=== PATIENT | female | born 1990 | race African-American/Black ===

== ENCOUNTER 2022-06-30 00:01 | Inpatient (IN) ==
[2022-06-30] MEDS ORDERED: FAMOTIDINE 20 MG/2 ML VIAL IV PRN (00:12)
[2022-06-30] MEDS ORDERED: LACTATED RINGERS 500 ML IV PRN (00:12)
[2022-06-30] MEDS ORDERED: CARBOPROST TROMETHAMINE 250 MCG/ML AMP IM PRN (00:12)
[2022-06-30] MEDS ORDERED: ACETAMINOPHEN 500 MG TABLET PO PRN (00:12)
[2022-06-30] MEDS ORDERED: miSOPROStoL 200 MCG TABLET RECTAL PRN (00:12)
[2022-06-30] MEDS ORDERED: METHYLERGONOVINE 0.2 MG/1 ML AMP IM PRN (00:12)
[2022-06-30] MEDS ORDERED: BUTORPHANOL 2 MG/ML VIAL IV PRN (00:12)
[2022-06-30] MEDS ORDERED: BUTORPHANOL 1 MG/ML VIAL IV PRN (00:12)
[2022-06-30] MEDS ORDERED: OXYTOCIN/LR 20 UNIT/1,000 ML BAG IV ONE ×3 (00:12→22:32)
[2022-06-30] MEDS ORDERED: TRANEXAMIC ACID 1,000 MG in SODIUM CHLORIDE 0.9% 100 ML IV PRN (00:12)
[2022-06-30] MEDS ORDERED: ONDANSETRON 4 MG/2 ML VIAL IV PRN (00:12)
[2022-06-30] MEDS ORDERED: MEPERIDINE 25 MG/1 ML VIAL IV PRN (00:12)
[2022-06-30] MEDS ORDERED: LACTATED RINGERS 500 ML IV ONE (00:14)
[2022-06-30] MEDS ORDERED: LACTATED RINGERS 1,000 ML IV SCH (00:30)
[2022-06-30 00:46] LABS: Basophils % 0.3 % (0.0-0.8); Eosinophils # 0.1 10*3/uL (0.0-0.87); Eosinophils % 1.1 % (0.00-10.9); Hematocrit 33.6 VOL% (35.7-47.0); Hemoglobin 10.5 GM/DL (12.0-16.0); Immature Granulocytes % 0.4 %; Immature Granulocytes Absolute 0.04 #; Lymphocytes # 1.9 10*3/uL (1.4-4.0); Lymphocytes % 19.9 % (21.3-54.2); Mean Corpuscular HGB Conc 31.3 GM/DL (32-36); Mean Platelet Volume 10.5 FL (9.6-12.0); Monocytes # 0.6 10*3/uL (0.11-0.8); Monocytes % 6.2 % (1.7-12.7); Neutrophils % 72.1 % (38.7-73.9); Platelet Count 271 T/CUMM (130-400); Red Cell Distribution Width 13.9 % (9.3-17.3); White Blood Count 9.3 T/CUMM (4-12)
[2022-06-30 01:01] LABS: Alanine Aminotransferase 15 U/L (13-56); Albumin 2.7 G/DL (3.4-5.0); Alkaline Phosphatase 200 U/L (45-117); Aspartate Amino Transferase 14 U/L (0-37); Bilirubin,Total < 0.39 MG/DL (0.20-1.00); Blood Urea Nitrogen 9 MG/DL (7-18); Calcium 8.9 MG/DL (8.5-10.1); Carbon Dioxide 20 MMOL/L (21-32); Chloride 111 MMOL/L (98-107); Glucose 84 MG/DL (74-106); Osmolality,Calculated 272.7 MOS/KG (273-304); Potassium 4.2 MMOL/L (3.5-5.1); Sodium 138 MMOL/L (136-145); Total Protein 6.7 G/DL (6.4-8.2)
[2022-06-30] MEDS ORDERED: AMPICILLIN INJ 2,000 MG in SODIUM CHLORIDE 0.9% 100 ML IV ONE (05:00)
[2022-06-30] MEDS: MEPERIDINE 50 MG/1 ML VIAL IV PRN ×2 (07:31→09:11)
[2022-06-30] MEDS: OXYTOCIN/LR 20 UNIT/1,000 ML BAG IV SCH ×2 (09:06→21:43)
[2022-06-30] MEDS: AMPICILLIN INJ 1,000 MG in SODIUM CHLORIDE 0.9% 100 ML IV SCH ×3 (09:15→17:16)
[2022-06-30] MEDS ORDERED: PROMETHAZINE 25 MG/1 ML VIAL IM ONE (09:18)
[2022-06-30] MEDS ORDERED: diphenhydrAMINE 50 MG/1 ML VIAL IV PRN ×2 (09:18)
[2022-06-30] MEDS ORDERED: CITRIC ACID/SODIUM CITRATE 30 ML UDCUP PO ONE (09:18)
[2022-06-30] MEDS ORDERED: ePHEDrine 50 MG/ML VIAL IV PRN (09:18)
[2022-06-30] MEDS ORDERED: NALOXONE 0.4 MG/ML VIAL IV PRN (09:18)
[2022-06-30] MEDS ORDERED: LACTATED RINGERS 1,000 ML IV ONE (09:18)
[2022-06-30] MEDS ORDERED: hydrOXYzine HCL 25 MG/1 ML VIAL IM PRN (09:18)
[2022-06-30] MEDS ORDERED: fentaNYL 2 MCG/ROPIV 0.2% EPID 100 ML EPIDURAL SCH (09:30)
[2022-06-30] MEDS ORDERED: TERBUTALINE 1 MG/1 ML VIAL ONE (10:57)
[2022-06-30] MEDS: TERBUTALINE 1 MG/1 ML VIAL SUBCUT PRN ×2 (10:58→16:19)
[2022-06-30 11:31] LABS: Bilirubin,Urine Negative (Negative); Blood, Urine Moderate mg/dL (Negative); Glucose,Urine (UA) Negative (Negative); Ketones,Urine Negative (Negative); Nitrite,Urine Negative (Negative); Protein,Urine Negative (Negative); Urine Appearance Clear (Clear); Urine Color Yellow (Yellow); Urine Specific Gravity > 1.030 (1.001-1.035)
[2022-06-30 11:32] LABS: Bacteria,Urine Few /HPF (Few); RBC,Urine 2 /HPF (0-4); Squamous Epithelial Cell,Urine Rare /HPF (0-10)
[2022-06-30] MEDS ORDERED: SODIUM CHLORIDE 0.9% 0 ML IV ONE (17:02)
[2022-06-30] MEDS ORDERED: miSOPROStoL 200 MCG TABLET ONE (17:02)
[2022-06-30] MEDS ORDERED: TRANEXAMIC ACID 1,000 MG/10 ML VIAL ONE (17:02)
[2022-06-30] MEDS ORDERED: CARBOPROST TROMETHAMINE 250 MCG/ML AMP IM ONE (17:03)
[2022-06-30] MEDS ORDERED: METHYLERGONOVINE 0.2 MG/1 ML AMP ONE (17:03)
[2022-06-30 19:11] LABS: Cord Venous Blood HCO3 15.5 MMOL/L; Cord Venous Blood PCO2 55.4 MMHG; Cord Venous Blood PO2 < 17
[2022-06-30] MEDS ORDERED: oxyCODONE/ACETAMINOPHEN 5-325 MG TABLET PO ONE (21:11)
[2022-06-30] MEDS ORDERED: WITCH HAZEL PADS 100/JAR TOP PRN (22:32)
[2022-06-30] MEDS ORDERED: MEASLES/MUMPS/RUBELLA VACCINE 0.5 ML VIAL SUBCUT ONE (22:32)
[2022-06-30] MEDS ORDERED: ACETAMINOPHEN 325 MG TABLET PO PRN (22:32)
[2022-06-30] MEDS ORDERED: oxyCODONE/ACETAMINOPHEN 5-325 MG TABLET PO PRN (22:32)
[2022-06-30] MEDS ORDERED: LANOLIN 50% CREAM 0.3 OZ TUBE TOP PRN (22:32)
[2022-06-30] MEDS ORDERED: BISACODYL 10 MG SUPP RECTAL PRN (22:32)
[2022-06-30] MEDS ORDERED: HYDROCORTISONE 2.5% RECTAL CREAM 30 GM TUBE TOP PRN (22:32)
[2022-06-30] MEDS ORDERED: DIPH/TET/ACEL PERT BOOSTER VACCINE 0.5 ML VIAL IM ONE (22:32)
[2022-06-30] MEDS ORDERED: RHO(D) IMMUNE GLOBULIN 300 MCG SYRINGE IM ONE (22:32)
[2022-06-30] MEDS ORDERED: BENZOCAINE 20%/MENTHOL 0.5% SPRAY 56 GM CAN TOP PRN (22:32)
[2022-06-30] MEDS: IBUPROFEN 800 MG TABLET PO PRN (23:44)
[2022-07-01] MEDS ORDERED: ONDANSETRON 4 MG/2 ML VIAL IV PRN (01:26)
[2022-07-01] MEDS ORDERED: MEPERIDINE 50 MG/1 ML VIAL IV ONE (01:30)
[2022-07-01 04:56] LABS: Basophils % 0.1 % (0.0-0.8); Eosinophils % 0.1 % (0.00-10.9); Hematocrit 29.6 VOL% (35.7-47.0); Hemoglobin 9.2 GM/DL (12.0-16.0); Immature Granulocytes % 0.4 %; Immature Granulocytes Absolute 0.06 #; Lymphocytes # 1.3 10*3/uL (1.4-4.0); Lymphocytes % 9.1 % (21.3-54.2); Mean Corpuscular HGB Conc 31.1 GM/DL (32-36); Mean Corpuscular Volume 82.7 FL (87-102); Monocytes # 0.8 10*3/uL (0.11-0.8); Monocytes % 5.5 % (1.7-12.7); Neutrophils % 84.8 % (38.7-73.9); Platelet Count 213 T/CUMM (130-400); Red Blood Count 3.58 MC/CUMM (3.8-5.5); Red Cell Distribution Width 13.9 % (9.3-17.3); White Blood Count 13.9 T/CUMM (4-12)
[2022-07-01] MEDS: DOCUSATE SODIUM 100 MG CAPSULE PO SCH ×3 (05:05→20:08)
[2022-07-01] MEDS: oxyCODONE/ACETAMINOPHEN 5-325 MG TABLET PO PRN ×2 (08:20→20:10)
[2022-07-01] MEDS: IBUPROFEN 800 MG TABLET PO PRN (10:33)
[2022-07-02] MEDS: IBUPROFEN 800 MG TABLET PO PRN (03:11)
[2022-07-02] MEDS ORDERED: MAGNESIUM HYDROXIDE SUSP 30 ML UDCUP PO ONE (08:03)
[2022-07-02] MEDS ORDERED: DIPH/TET/ACEL PERT BOOSTER VACCINE 0.5 ML VIAL IM ONE (08:04)
[2022-07-02 08:22] VITALS: BP 121/76
[2022-07-02] MEDS: DOCUSATE SODIUM 100 MG CAPSULE PO SCH (08:24)
[2022-07-02] MEDS: oxyCODONE/ACETAMINOPHEN 5-325 MG TABLET PO PRN (08:25)
== END 2022-07-02 14:30 | disposition home or self-care (01) | DRG 807 ==
LOC: N.LD 00:01 → N.OB 22:25
PROVIDERS: ADMIT Obstetrics & Gynecology; ATTEND Obstetrics & Gynecology